=== PATIENT | female | born 1960 | race Caucasian/White ===

== ENCOUNTER → 2023-07-23 10:10 | Outpatient (BNVA) | payer BC, SELFPAY | PROVIDERS: Visit Provider Family Medicine | DX: Z13.6 Encounter for screening for cardiovascular disorders (principal); E07.9 Disorder of thyroid, unspecified | CPT/HCPCS: 80053; 80061; 84439; 84443; 85025 ==

== ENCOUNTER 2023-08-04 07:17 | Outpatient (CLI) | payer BC, SELFPAY ==
--- NOTE | 2023-08-04 07:30 | US_ITS ---
WS: [id number] ULTRASOUND THYROID TECHNIQUE: Ultrasound of the thyroid. CLINICAL INFORMATION: thyroid mass COMPARISON: None. FINDINGS: Thyroid: Enlarged diffuse heterogeneous thyroid echotexture with multinodular thyroid most compatible with multinodular goiter. Right thyroid lobe: 7.7 cm x 3.3 cm x 3.2 cm Solid well-circumscribed RIGHT mid thyroid nodule measuring 2.5 x 3.0 x 3.5 cm with associated vascul arity. Similar-appearing well-circumscribed RIGHT inferior thyroid nodule measuring 2.2 x 1.8 x 2.3 cm with associated vascularity. Small calcified nodule superior RIGHT thyroid measuring 7 x 6 mm. Left thyroid lobe: 6.2 cm x 1.9 cm x 2.0 cm. Well-circumscribed solid LEFT thyroid nodule mid thyroid measuring 9.3 x 9.2 mm and inferior thyroid measuring 11 x 11 mm. Isthmus: 0.6 mm. Hypoechoic well-circumscribed nodule in the LEFT isthmus measuring 7.1 x 4.9 mm Cervical lymphadenopathy: None. IMPRESSION: 1. Enlarged thyroid with heterogeneous thyroid echotexture with multinodular thyroid compatible with multinodular goiter. Recommend correlation with thyroid function studies. 2. Largest dominant nodules in the RIGHT thyroid described above.
[2023-08-09 09:54] LABS: Thyroid Peroxidase Antobodies 221 IU/mL (<9)
[2023-08-13 22:55] LABS: Thyroglobulin Level 296.8 ng/mL
== END 2023-08-04 07:18 | disposition home or self-care (01) ==
PROVIDERS: PCP Family Medicine; Visit Provider Family Medicine
DX: E04.2 Nontoxic multinodular goiter (principal); E07.9 Disorder of thyroid, unspecified
CPT/HCPCS: 36415; 76536; 84432; 86376; 86800

== ENCOUNTER → 2023-10-29 08:42 | Outpatient (BNVA) | payer BC, SELFPAY | PROVIDERS: PCP Family Medicine; Visit Provider Family Medicine | DX: E78.5 Hyperlipidemia, unspecified (principal) | CPT/HCPCS: 80061 ==

== ENCOUNTER → 2024-02-02 13:25 | Outpatient (BNVA) | payer BC, SELFPAY | PROVIDERS: PCP Family Medicine; Visit Provider Family Medicine | DX: E78.5 Hyperlipidemia, unspecified | CPT/HCPCS: 80053; 80061 ==

== ENCOUNTER → 2025-07-02 14:29 | Outpatient (BNVA) | payer BC, SELFPAY | DX: E78.5 Hyperlipidemia, unspecified (principal); E06.3 Autoimmune thyroiditis; M25.50 Pain in unspecified joint | CPT/HCPCS: 80053; 80061; 84443; 85025; 85651; 86140 ==

== ENCOUNTER 2025-07-19 10:21 | Outpatient (CLI) | payer BC, SELFPAY ==
--- NOTE | 2025-07-19 10:38 | XRR_ITS ---
PROCEDURE INFORMATION: Exam: XR Right Hand Exam date and time: 07/19/2025 10:44 AM Age: 65 years old Clinical indication: Right; Pain & popping in RT hand, specifically thumb & 3rd digit x few months. ; Additional info: Right hand pain TECHNIQUE: Imaging protocol: Radiologic exam of the right hand. Views: 3 or more views. COMPARISON: No relevant prior studies available. FINDINGS: Bones/joints: Alignment is normal. Bone mineralization is normal. No acute fracture. There is diffuse mild interphalangeal joint space narrowing and small osteophytes. There is mild joint space narrowing and small osteophytes at the 1st metacarpophalangeal joint. There is moderate joint space narrowing, osteophytes and subchondral cysts at the 1st carpometacarpal joint. Soft tissues: Visible soft tissues are unremarkable. XR/XR hand RT min 3V* [id number] IMPRESSION: 1. 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 2. 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
== END 2025-07-19 10:22 | disposition home or self-care (01) ==
PROVIDERS: Visit Provider Pediatrics
DX: M25.741 Osteophyte, right hand (principal); M19.041 Primary osteoarthritis, right hand
CPT/HCPCS: 73130